=== PATIENT | female | born 1950 | race Caucasian/White ===

== ENCOUNTER 2023-02-20 16:28 | Emergency (ER) | payer MEDICARE, OTHER ==
[~2023-02-20] VITALS: Ht 172.7 cm; Wt 107.0 kg
[2023-02-20] MEDS ORDERED: MAXITROL EYE DRO5 ML OPTH (16:52)
[2023-02-20 16:58] VITALS: BP 134/82
== END 2023-02-20 16:59 | disposition home or self-care (01) ==
LOC: ED 16:28
DX: H20.9 Unspecified iridocyclitis (principal); Z88.0 Allergy status to penicillin; Z91.040 Latex allergy status

== ENCOUNTER 2024-12-08 15:47 | Emergency (ER) | payer MEDICARE, OTHER ==
[~2024-12-08] VITALS: Ht 172.7 cm; Wt 117.0 kg
[~2024-12-08 15:47] MED LIST: ALLOPURINOL100 MG; ALLOPURINOL100 MG PO; ATORVASTATIN CA10 MG; CALCITRIOL0.25 MCG PO; FAMOTIDINE20 MG PO; INDAPAMIDE2.5 MG; INDAPAMIDE2.5 MG PO; IRON325 M1 PO; LEVOTHYROXINE75 MC1 PO; LEVOTHYROXINE75 MCG; LIPITOR10 MG PO; LOSARTAN POTASS50 MG; LOSARTAN POTASS50 MG PO; MAXITROL EYE DRO5 ML OPTH; METOPROLOL SUCC25 MG; METOPROLOL SUCC25 MG PO; REPAGLINIDE1 MG PO; STELARA45 MG/0.1 SUB-Q; TORSEMIDE10 MG PO; VITAMIN B12500 MCG PO; VITAMIN D350 MCG PO
[2024-12-08] MEDS ORDERED: SOD PHOSPHATE/SOD BIPHOSPHATE 132 ML BTL PR ONE (17:00)
[2024-12-08 17:35] VITALS: BP 112/49
== END 2024-12-08 17:35 | disposition home or self-care (01) ==
LOC: ED 15:47
DX: K56.41 Fecal impaction (principal); K50.90 Crohn's disease, unspecified, without complications; I10 Essential (primary) hypertension; E11.9 Type 2 diabetes mellitus without complications; E07.9 Disorder of thyroid, unspecified; Z88.0 Allergy status to penicillin; Z91.040 Latex allergy status; Z79.890 Hormone replacement therapy; Z79.899 Other long term (current) drug therapy
CPT/HCPCS: 99283